=== PATIENT | male | born 1995 | race Two or more races ===

== ENCOUNTER 2024-03-05 00:19 | Emergency (ER) | payer SELFPAY ==
[~2024-03-05] VITALS: Ht 180.3 cm; Wt 85.0 kg
[2024-03-05] MEDS ORDERED: [UNRECOGNIZED DRUG - CODE] PO (01:37)
[2024-03-05] MEDS ORDERED: IBUP-1984 PO (01:37)
[2024-03-05] MEDS: ibuprofen tablet 400 MG TABLET PO ONE (01:53)
[2024-03-05] MEDS: acetaminophen 325mg tablet PO ONE (01:53)
[2024-03-05 02:05] VITALS: BP 126/70; PULSE 70; RESP 16; TEMP 98.1; O2SAT 98
== END 2024-03-05 02:08 | disposition home or self-care (01) ==
LOC: ER 00:20
DX: M25.562 Pain in left knee (principal)
CPT/HCPCS: 73564; 99283

== ENCOUNTER 2024-03-31 09:25 | Emergency (ER) | payer MEDICAID ==
[~2024-03-31] VITALS: Ht 180.3 cm; Wt 90.0 kg
[~2024-03-31 09:25] MED LIST: IBUP-1984 PO; [UNRECOGNIZED DRUG - CODE] PO
[2024-03-31 09:37] VITALS: TEMP 97.9
[2024-03-31 09:56] LABS: BILIRUBIN,URINE NEGATIVE (Neg); CLARITY,URINE CLEAR (Clear); COLOR,URINE YELLOW (Yellow); GLUCOSE, URINE NEGATIVE (Neg); KETONES,URINE NEGATIVE (Neg); LEUKOCYTE ESTERASE ,URINE NEGATIVE (Neg); NITRITES, URINE NEGATIVE (Neg); OCCULT BLOOD,URINE NEGATIVE (Neg); PROTEIN,URINE NEGATIVE (Neg); UROBILINOGEN,URINE 0.2 E.U/dL (0.2-1.0)
[2024-03-31 10:02] LABS: UA COLLECTION TYPE URINAL
[2024-03-31 10:15] LABS: URINE AMPHETAMINE SCREEN NEGATIVE (Neg); URINE BARBITUATE SCREEN NEGATIVE (Neg); URINE BENZODIAZEPINES SCREEN NEGATIVE (Neg); URINE CANNABINOID SCREEN POSITIVE (Neg); URINE COCAINE SCREEN NEGATIVE (Neg); URINE METHADONE SCREEN NEGATIVE (Neg); URINE OPIATE SCREEN NEGATIVE (Neg); URINE PHENCYCLIDINE SCREEN NEGATIVE (Neg)
[2024-03-31 10:26] LABS: BASOPHILS # (AUTO) 0.1 X10'3 (0-0.2); BASOPHILS % (AUTO) 0.9 % (0-1); EOSINOPHILS % (AUTO) 0.9 % (0-6); HEMATOCRIT 44.9 % (42.0-52.0); LYMPHOCYTES # (AUTO) 1.4 X10'3 (1.1-4.8); LYMPHOCYTES % (AUTO) 24.5 % (21-51); MEAN CORPUSCULAR HEMOGLOBIN 29.7 PG (27.0-31.0); MEAN CORPUSCULAR HGB CONC 33.5 g/dL (33.0-36.5); MEAN CORPUSCULAR VOLUME 88.7 FL (78-98); MEAN PLATELET VOLUME 10.3 FL (7.4-10.4); MONOCYTES # (AUTO) 0.4 X10'3 (0-0.9); MONOCYTES % (AUTO) 7.2 % (2-12); NEUTROPHILS # (AUTO) 3.7 X10'3 (1.8-7.7); NEUTROPHILS % (AUTO) 66.5 % (42-75); PLATELET COUNT 218 X10'3 (140-440); RED BLOOD COUNT 5.06 X10'6 (4.70-6.10); RED CELL DISTRIBUTION WIDTH 13.6 % (11.5-14.5); WHITE BLOOD COUNT 5.6 X10'3 (4.5-11.0)
[2024-03-31 10:45] LABS: ANION GAP 9 (8-16); BLOOD UREA NITROGEN 6 MG/DL (7-18); BUN/CREATININE RATIO 8.5 (10.0-20.0); CHLORIDE 104 MMOL/L (99-107); CREATININE 0.71 MG/DL (0.60-1.10); GLUCOSE 93 MG/DL (70-104); POTASSIUM 3.4 MMOL/L (3.5-5.1); SODIUM 139 MMOL/L (135-145); TOTAL CARBON DIOXIDE 26.2 MMOL/L (24-32); eCRCL 164 ML/MIN
[2024-03-31 10:46] LABS: ALBUMIN 4.3 G/DL (3.4-5.0); CALCIUM 9.2 MG/DL (8.5-10.1); ETHANOL < 10 MG/DL (<10); THYROID STIMULATING HORMONE 1.09 ulU/ml (0.34-4.50); eGFR > 90 ML/MIN
[2024-03-31 12:24] VITALS: BP 136/78; PULSE 78; RESP 16; O2SAT 98
== END 2024-03-31 12:26 | disposition home or self-care (01) ==
LOC: ER 09:26
DX: R45.851 Suicidal ideations (principal); Z20.822 Contact with and (suspected) exposure to COVID-19; Z79.1 Long term (current) use of non-steroidal anti-inflammatories (NSAID)
CPT/HCPCS: 36415; 80048; 80305; 80320; 81003; 84443; 85025; 87811; 99283